=== PATIENT | female | born 1980 | race American Indian/Alaskan Native ===

== ENCOUNTER 2016-04-22 13:15 | Outpatient (CLI) | payer OTHER ==
--- NOTE | 2016-04-22 13:48 | XRay Report ---
Lumbar spine 3 views: History: Back pain. Findings: Normal height of vertebral bodies and intervertebral disc. Normal articular surfaces. No fracture. No soft tissue calcification. Impression: Essentially negative lumbar spine.
== END 2016-04-22 13:16 | disposition home or self-care (01) ==
LOC: XRAY 13:15
PROVIDERS: ATTEND Internal Medicine Rheumatology
DX: M54.5 Low back pain (principal)
CPT/HCPCS: 72100